=== PATIENT | female | born 1995 | race Caucasian/White ===

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

== ENCOUNTER 2017-08-04 14:01 | Emergency (ER) | payer SELFPAY ==
[2017-08-04 14:07] VITALS: O2SAT 100
[2017-08-04 15:04] VITALS: BP 122/70; PULSE 86; RESP 18; TEMP 98.7
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
== END 2017-08-04 15:22 | disposition home or self-care (01) ==
LOC: C.ER 14:01
DX: S01.01XA Laceration without foreign body of scalp, initial encounter (principal); S01.81XA Laceration without foreign body of other part of head, initial encounter; Y04.0XXA Assault by unarmed brawl or fight, initial encounter

== ENCOUNTER 2017-08-19 19:10 | Emergency (ER) | payer SELFPAY ==
[2017-08-19 19:35] VITALS: BP 97/66; PULSE 81; RESP 20; TEMP 98.7; O2SAT 99
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
== END 2017-08-19 20:24 | disposition home or self-care (01) ==
LOC: C.ER 19:10
DX: Z48.02 Encounter for removal of sutures (principal)

== ENCOUNTER 2017-12-21 17:05 | Emergency (ER) | payer SELFPAY ==
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
[2017-12-21 18:07] LABS: BASO # 0.1 K/uL (0.0-0.2); BASO % 0.9 % (0.0-2.0); EOS # 0.2 K/uL (0.0-0.7); EOS % 2.1 % (0.0-4.0); HEMOGLOBIN 12.3 g/dL (11.0-16.0); LYMPH # 3.2 K/uL (1.0-4.3); MEAN CELL VOLUME 90.4 fL (81.0-99.0); MEAN CORPUSCULAR HEMOGLOBIN 29.8 pg (27.0-31.0); MEAN PLATELET VOLUME 7.4 fL (7.2-11.7); MONO # 0.8 K/uL (0.0-0.8); MONO % 6.6 % (0.0-10.0); NEUT # 7.5 K/uL (1.8-7.0); NEUT % 63.4 % (50.0-75.0); NRBC % 0.1 % (0.0-2.0); RBC 4.12 Mil/uL (3.80-5.20); RED CELL DISTRIBUTION WIDTH 13.4 % (11.5-14.5); WHITE BLOOD COUNT 11.8 K/uL (4.8-10.8)
[2017-12-21 18:08] LABS: HCG,QUALITATIVE URINE POSITIVE (NEGATIVE)
[2017-12-21 18:10] LABS: SQUAMOUS EPITHIAL < 1 /hpf (0-5); URINE BILIRUBIN NEGATIVE (NEGATIVE); URINE BLOOD NEGATIVE (NEGATIVE); URINE CLARITY Clear (Clear); URINE COLOR Yellow (YELLOW); URINE GLUCOSE (UA) NORMAL (Normal); URINE LEUKOCYTE ESTERASE NEG Leu/uL (Negative); URINE PROTEIN NEGATIVE (NEGATIVE); URINE UROBILINOGEN NORMAL mg/dL (0.2-1.0)
[2017-12-21 18:18] LABS: BLOOD UREA NITROGEN 9 mg/dL (7-17); CALCIUM 9.3 mg/dl (8.6-10.4); GFR NON-AFRICAN AMERICAN > 60
[2017-12-21 21:08] VITALS: BP 111/66; PULSE 84; RESP 17; TEMP 98; O2SAT 99
--- NOTE | 2017-12-22 12:44 | US ---
Date of service: 12/21/2017 PROCEDURE: OB Pelvic Ultrasound HISTORY: Rt groin pain LMP: 11/15/2017 COMPARISON: None available. FINDINGS: UTERUS: Uterus measures is anteverted measuring approximately 7.2 x 5.1 x 4.3 cm. Cervix measures 4.1 cm. Endometrium is thickened measuring approximately 1.8 cm There is a small anechoic focus within the endometrial canal that could represent a gestational sac however there is no pole or yolk sac detected. While this could represent a very early intrauterine gestation the possibility of an ectopic cannot be excluded therefore follow-up serial serum beta HCG and serial pelvic ultrasound recommended Heart rate: NA age (NA CERVIX: Measures cm. Long and closed. No cervical abnormality seen. RIGHT OVARY: Measures 3.4 x 2.3 x 3.0 cm. No mass lesion. Normal flow. LEFT OVARY: Measures 2.2 x 1.3 x 2.2 cm. No solid mass. Normal flow. FREE FLUID: Amount free fluid is present in the cul de sac OTHER FINDINGS: None. IMPRESSION: Thickened endometrium. Small anechoic focus within the endometrial canal that could represent a gestational sac however there is no pole or yolk sac detected. While this could represent a very early intrauterine gestation the possibility of a the nectopic cannot be excluded therefore follow-up serial serum beta HCG and serial pelvic ultrasound recommended. Small amount of free fluid present within the cul de sac
== END 2017-12-21 21:51 | disposition home or self-care (01) ==
LOC: C.ER 17:05
DX: O20.0 Threatened abortion (principal); O26.899 Other specified pregnancy related conditions, unspecified trimester; R10.31 Right lower quadrant pain